=== PATIENT | male | born 1990 | race American Indian/Alaskan Native ===

== ENCOUNTER 2016-08-05 02:02 | Emergency (ER) | payer MEDICAID ==
[2016-08-05 02:15] VITALS: BP 130/90
--- NOTE | 2016-08-05 03:46 | Emergency Department Report ---
HPI - General Chief Complaint: Extremity Problem,Nontraumatic Time Seen by Provider: 08/05/16 03:05 - HPI HPI: 25-year-old male presents today complaining left shoulder pain 2.5 weeks. Denies any injury or trauma. Denies history of similar symptoms. Patient describes his pain as 0 out of 10 at rest and 8 out of 10 with movement that is sharp and throbbing. Denies numbness, weakness, paresthesias. Denies trying any medication for pain relief. Denies fever, chills, nausea, vomiting, chest pain, shortness breath, abdominal pain. ED Past Medical Hx - Past Medical History Previous Medical History?: Yes Additional medical history: Chronic Pack Pain - Surgical History Past Surgical History?: No - Social History Smoking Status: Never Smoker Substance Use Type: None - Medications Home Medications: Home Medications Medication Instructions Recorded Confirmed Last Taken Type Acetaminophen/Codeine [Tylenol #3] 1 tab PO Q6H PRN #10 tab 06/17/16 Unknown Rx Ibuprofen [Motrin 600 MG tab] 600 mg PO Q8H PRN #30 tablet 06/17/16 Unknown Rx Naproxen [Naprosyn] 500 mg PO BID #30 tablet 08/05/16 Unknown Rx methOCARBAMOL [Robaxin TAB] 500 mg PO BID #20 tab 08/05/16 Unknown Rx ED Review of Systems ROS: Stated complaint: L SHOULDER PAIN Other details as noted in HPI Constitutional: denies: chills, fever, malaise Eyes: denies: eye pain ENT: denies: ear pain, throat pain, congestion Respiratory: denies: cough, shortness of breath, wheezing Cardiovascular: denies: chest pain, palpitations Endocrine: no symptoms reported Gastrointestinal: denies: abdominal pain, nausea, vomiting Musculoskeletal: arthralgia Neurological: denies: headache, weakness, numbness, paresthesias Physical Exam - Physical Exam Vital Signs: Vital Signs 08/05/16 02:11 Temperature 98.2 F Pulse Rate 80 Respiratory 18 Rate Blood Pressure 130/90 O2 Sat by Pulse 97 Oximetry Physical Exam: GENERAL: The patient is well-developed and well-nourished. Patient is in NAD. HEAD: Normocephalic. Atraumatic. NECK: Range of motion. No midline or paraspinal tenderness to palpation. CHEST/LUNGS: Clear to auscultation throughout. HEART/CARDIOVASCULAR: Regular rate and rhythm. No murmurs, rubs or gallops. ABDOMEN: Abdomen is soft, nontender. Bowel sounds normoactive. No guarding or rebound tenderness. LEFT SHOULDER: Full range of motion, pain over the trapezius muscle group with shoulder range of motion. No tenderness to palpation of shoulder joint. Normal sensation. 2 point discrimination intact. Peripheral pulses intact. Capillary refill less than 2 seconds. NEURO: Alert and oriented x 3. Normal gait. ED Course Vital Signs 08/05/16 02:11 Temperature 98.2 F Pulse Rate 80 Respiratory 18 Rate Blood Pressure 130/90 O2 Sat by Pulse 97 Oximetry ED Medical Decision Making - Lab Data Vital Signs 08/05/16 02:11 Temperature 98.2 F Pulse Rate 80 Respiratory 18 Rate Blood Pressure 130/90 O2 Sat by Pulse 97 Oximetry - Medical Decision Making 25-year-old male presents today with left shoulder pain. Denies injury or trauma. Patient is in no acute distress at this time. He will be discharged home and is encouraged to follow up with a primary care provider. He will be sent home on Robaxin and Naprosyn and is encouraged to return to the emergency room for any worsening symptoms. Critical care attestation.: If time is entered above; I have spent that time in minutes in the direct care of this critically ill patient, excluding procedure time. ED Disposition Clinical Impression: Muscle strain Disposition: DISCHARGED TO HOME OR SELFCARE Is pt being admited?: No Does the pt Need Aspirin: No Condition: Stable Instructions: Muscle Strain (ED) Additional Instructions: Follow-up with primary care provider. Return to the emergency department if symptoms worsen. Prescriptions: methOCARBAMOL [Robaxin TAB] 500 mg PO BID #20 tab Naproxen [Naprosyn] 500 mg PO BID #30 tablet Referrals: SIMIN ROBERTSON MD [Primary Care Provider] - 3-5 Days MAHI WILLARD MD [Staff Physician] - 3-5 Days Forms: Work/School Release Form(ED) Time of Disposition: 03:46
== END 2016-08-05 04:20 | disposition home or self-care (01) ==
LOC: ED 02:02
DX: S46.912A Strain of unspecified muscle, fascia and tendon at shoulder and upper arm level, left arm, initial encounter (principal); G89.29 Other chronic pain; X58.XXXA Exposure to other specified factors, initial encounter; Y93.89 Activity, other specified; Y92.89 Other specified places as the place of occurrence of the external cause; Y99.8 Other external cause status
CPT/HCPCS: 99282

== ENCOUNTER 2016-11-29 15:55 | Emergency (ER) | payer MEDICAID | END 2016-11-29 17:07 | disposition left against medical advice (07) | LOC: ED 15:55 | DX: Z53.21 Procedure and treatment not carried out due to patient leaving prior to being seen by health care provider (principal) ==

== ENCOUNTER 2021-06-21 17:02 | Outpatient (CLI) | payer MEDICAID ==
--- NOTE | 2021-06-22 06:52 | XRay Report ---
RIGHT WRIST 2 VIEW(S) INDICATION / CLINICAL INFORMATION: M25.531 PAIN IN RIGHT WRIST COMPARISON: None available. FINDINGS: BONES / JOINT(S): No acute fracture or subluxation. No significant arthritis. SOFT TISSUES: No significant abnormality. ADDITIONAL FINDINGS: None. IMPRESSION: 1. No acute findings. Signer Name: Raimundo Cotto II, MD Signed: 06/22/2021 6:47 AM Workstation Name: [email or web address]
== END 2021-06-21 17:03 | disposition home or self-care (01) ==
LOC: XRAY 17:02
PROVIDERS: ATTEND Orthopaedic Surgery
DX: M25.531 Pain in right wrist (principal)